=== PATIENT | female | born 1930 | race American Indian/Alaskan Native ===

== ENCOUNTER 2021-04-08 11:23 | Outpatient (CLI) | payer MEDICARE, OTHER ==
--- NOTE | 2021-04-08 14:29 | XRay Report ---
AP pelvis with bilateral hips-5 total views INDICATION: HIP PAIN [id number]. COMPARISON: None. IMPRESSION: There is periosteal change along the left superior pubic ramus. Cannot exclude underlyin g healing fracture. Consider follow-up MRI of the pelvis for further evaluation. Soft tissues are nor mal. Normal alignment. 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 Signer Name: Kip Steele MD Signed: 04/08/2021 2:24 PM Workstation Name: [id number]
== END 2021-04-08 11:24 | disposition home or self-care (01) ==
LOC: SPVIMAG 11:23
PROVIDERS: ATTEND Internal Medicine
DX: M16.0 Bilateral primary osteoarthritis of hip (principal)
CPT/HCPCS: 73521